=== PATIENT | male | born 1975 | race Caucasian/White ===

== ENCOUNTER 2023-03-09 22:07 | Emergency (ER) | payer MEDICAID, SELFPAY ==
--- NOTE | ~2023-03-09 | XR_ITS ---
EXAMINATION: XR wrist LT min 3V DATE: 03/09/2023 22:25 INDICATION: Left wrist pain. TECHNIQUE: 4 views of left wrist were obtained. COMPARISON: None. FINDINGS: Scapholunate dissociation is noted. There is rotatory subluxation of scaphoid. There is sev ere osteoarthritis of lunate-capitate joint. There is mild osteoarthritis of first carpometacarpal claudia int and triscaphe joint. There is moderate osteoarthritis of lunate-hamate joint. IMPRESSION: 1. Scapholunate dissociation. 2. 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 Reviewed, dictated and finalized at location E. ERCIAL SEWING INSTRUCTOR IMPRESSION: 1. Scapholunate dissociation. 2. 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
[2023-03-09 22:07] VITALS: BP 194/110; PULSE 98; RESP 18; TEMP 37.1; O2SAT 100
--- NOTE | 2023-03-09 22:13 | ED.UPPEXIN ---
HPI - Extremity Injury (Upper) General Chief Complaint: Extremity Injury, Upper Stated Complaint: injured wrist/ hand Time Seen by Provider: 03/09/23 22:12 Source: patient Mode of arrival: ambulatory Limitations: no limitations History of Present Illness HPI narrative: 48-year-old male with a history of hypertension presents to the ER with -- acute onset left wrist pain with decreased range of motion. No recent trauma. He slept in his car and when he woke he noted the pain / stiffness and decreased range of motion. No prior pain in that wrist. patient is left handed no history of recent diarrhea/urethritis. complaint: injury to: left and wrist Onset (ago): hour(s) ( 6 hours) Other Extremity Injury: Left: wrist Handedness: left Severity: moderate Relieving factors: none Exacerbating factors: none Associated symptoms: denies other symptoms Treatments prior to arrival: cold therapy Related Data Allergies Allergy/AdvReac Type Severity Reaction Status Date / Time No Known Allergies Allergy Verified 03/09/23 22:20 Review of Systems Review of Systems: All systems reviewed & are unremarkable except as noted in HPI and below Constitutional: Constitutional: Reports as per HPI and Reports no additional constitutional complaints Eyes: Eyes: Reports as per HPI and Reports no additional eye complaints ENT: Reports system reviewed and no additional complaints, except as documented and Reports as per HPI Cardiovascular: Cardiovascular: Reports as per HPI and Reports no additional cardiovascular complaints Respiratory: Respiratory: Reports as per HPI and Reports no additional respiratory complaints Gastrointestinal: Gastrointestinal: Reports as per HPI and Reports no additional gastrointestinal complaints Genitourinary: Genitourinary: Reports no additional male genitourinary complaints Musculoskeletal: Musculoskeletal: Reports no additional musculoskeletal complaints and Reports as per HPI Comments: left wrist pain /swe Integumentary/Breasts: Skin/Breast: Reports system reviewed and no additional complaints, except as docu and Reports as per HPI Neurologic: Reports system reviewed and no additional complaints, except as documented and Reports as per HPI Psychiatric: Psychiatric: Reports no additional psychiatric complaints and Reports as per HPI Endocrine: Endocrine: Reports no additional endocrine complaints and Reports as per HPI Hematologic/Lymphatic: Hematologic/Lymphatic: Reports no additional hematologic/lymphatic complaints and Reports as per HPI Allergic/Immunologic: Allergic/Immunologic: Reports no additional allergic/immunologic complaints and Reports as per HPI PMFSH Past Medical History Medical History Hypertension Exam Narrative: patient is hypertensive with a blood pressure of 194/110. Const: General: healthy appearing and no acute distress Orientation/consciousness: patient oriented x3 Limitations: no limitations HENMT: Head: normal to inspection Ears: external ears normal Face/Nose/Sinus: Normal external nose present Face and sinus: normal facial exam Mouth: Yes Normal oral and palatal mucosa present Throat: posterior oropharynx normal Eyes: Conjunctivae: conjunctivae normal Pupils: Equal, round and reactive pupils present EOM: EOMs intact bilaterally Direct Ophthalmoscopy: no photophobia Neck: Neck: normal visual inspection and no lymphadenopathy Chest: Chest palpation & inspection: normal inspection of the chest Resp: Effort & Inspection: normal respiratory effort Auscultation: clear to auscultation bilaterally Cardio: Rate: regular rate Rhythm: regular rhythm GI: GI Palp: Yes Soft to palpation Other: No tenderness/rigidity / rebound. : General: Yes no CVA tenderness Back/Spine/Pelvis: Back: no CVA tenderness Skin: General skin exam: normal color Rashes: no rashes Wounds: no wounds Neuro:
== END 2023-03-09 23:34 | disposition home or self-care (01) ==
PROVIDERS: Emergency Provider Internal Medicine Critical Care Medicine
DX: M25.332 Other instability, left wrist (principal); I10 Essential (primary) hypertension
CPT/HCPCS: 73110; 99283

== ENCOUNTER 2023-03-23 09:08 | Outpatient (CLI) | payer MEDICAID, SELFPAY ==
[2023-03-23 09:34] LABS: Basophils Absolute Auto 0.07 K/mm3 (0.00-0.10); Basophils Percent Auto 0.6 % (0.0-1.0); Eosinophils Absolute Auto 0.11 K/mm3 (0.02-0.50); Hematocrit 47.8 % (40.0-54.0); Hemoglobin 15.4 g/dL (14.0-18.0); Immature Granulocyte Absolute 0.04 K/mm3 (0.00-0.00); Immature Granulocyte Percent A 0.4 % (0.0-0.0); Lymphocytes Absolute Auto 2.55 K/mm3 (1.10-4.50); Mean Corpuscular HGB Conc 32.2 g/dL (32.0-36.0); Mean Corpuscular Hemoglobin 26.8 pg (27.0-31.0); Mean Corpuscular Volume 83.1 fL (78.0-102.0); Mean Platelet Volume 11.7 fl (8.7-11.0); Monocytes Absolute Auto 0.76 K/mm3 (0.10-0.90); Monocytes Percent Auto 6.9 % (2.0-11.0); Neutrophils Absolute Auto 7.6 K/mm3 (1.7-7.2); Neutrophils Percent Auto 68.1 % (50.0-70.0); Platelet Count Result 236 K/mm3 (150-420); Red Blood Count 5.75 M/mm3 (4.70-6.10); Red Cell Distribution Width 14.6 % (11.6-14.4); White Blood Count 11.1 K/mm3 (4.8-10.8)
[2023-03-23 10:16] LABS: Alanine Aminotransferase 38 U/L (16-63); Albumin Level 3.6 g/dL (3.4-5.0); Alkaline Phosphatase 115 U/L (46-116); Anion Gap 13 mmol/L (8-16); Aspartate Amino Transferase 27 U/L (15-37); Bilirubin,Total 0.4 mg/dL (0.00-1.00); Blood Urea Nitrogen 24 mg/dL (7-18); Calcium 9.1 mg/dL (8.5-10.1); Carbon Dioxide 24 mmol/L (21-32); Chloride 101 mmol/L (98-108); Cholesterol 185 mg/dL (0-200); Estimated Glomerular Filt Rate > 60; Glucose 110 mg/dL (70-99); HDL Direct 48 mg/dL (40-60); LDL Cholesterol Calculated 116 mg/dL (<130); Osmolality Calculated 291 mOsm/kg (285-295); Potassium 4.4 mmol/L (3.5-5.1); Sodium 138 mmol/L (136-145); Total Protein 7.3 g/dL (6.4-8.2); Triglycerides 103 mg/dL (0-150)
== END 2023-03-23 09:09 | disposition home or self-care (01) ==
LOC: CHSLAB 09:10
PROVIDERS: PCP Family Medicine; Visit Provider Family Medicine
DX: I10 Essential (primary) hypertension (principal)
CPT/HCPCS: 36415; 80053; 80061; 85025

== ENCOUNTER 2023-04-11 11:47 | Outpatient (RCR) | payer MEDICAID, SELFPAY ==
--- NOTE | 2023-04-15 11:26 | BUOTOPEVAL ---
Assessment and note entered by Belinda Gupta, OT Evaluation Information Assessment Status Evaluation Diagnosis L wrist inflamation Onset 03/09/2023 Subjective Information The patient reports minimal pain as soreness in L wrist at the time of evaluation. The patient reports he was casted for 5 weeks with his thumb immobilized and it got removed 04/09/23. The patient has been wearing wrist brace with thumb free for 1 week at all times. He reports tingling in ring and small finger and has a nerve conduction test soon to determine nerve involvement. The patient reports when he takes a shower he has pain the worst and when moving his wrist at all. 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 He now states limited fruit raiser in UE. Reported Pain Level Pain Score 0: Self Report Pain Score 0: Self Report Assessment OT Clinical Summary The patient is a 48 year old male who was referred to outpatient OT due to L wrist pain resulting in pain, limited ROM and weakness. The patient's PMH includes but is not limited to diabetes. The patient previously demonstrated WNL wrist ROM, WNL strength/fruit raiser strength and no difficulties with fine motor coordination. The patient now demonstrates moderately impaired fine motor coordination, wrist strength, wrist AROM, and fruit raiser strength that affect his ability to open jars, zip zippers and button his shirts. The patient requires skilled OT to address functional deficits and return to PLOF in order to perform ADLs and IADLs. . Plan of Care Interventions Therapeutic Exercise,Manual Therapy,Neuro Re- education,Therapeutic Activities,Hot Pack/Cold Pack,Electrical Stimulation,Self-Care/Home Management,Prosthetic Training,Check Out for Orthotic/Pr,Ultrasound OT Services Indicated Yes Treatment Frequency and 3x/week for 12 visits. Duration These treatments will address the objective and functional deficits as defined above. The patient will be advanced safely and appropriately in order for the patient to progress towards his/her prior level of function. Additional exercises will be introduced and as well as a comprehensive home exercise program upon discharge, if needed, ?to ensure carryover of functional gains achieved in the clinic. This treatment plan has been reviewed and agreement upon by the patient.
--- NOTE | 2023-05-06 15:06 | OTOPDC ---
Assessment and note entered by Belinda Gupta, OT Evaluation Information Assessment Status Discharge Subjective Information The patient reports his wrist feels much better. He stated that he is able to perform all ADLs independently and with no issues in L wrist. The patient reports he does not have pain only at times when he moves it a certain way. He stated that he has made really good improvement since the start of OT. Reported Pain Level Pain Score 0: Self Report Pain Score 0: Self Report Assessment OT Clinical Summary The patient demonstrates significant progress in pain symptoms, crew leader strength, pinch strength, fine motor coordination and AROM of L wrist and hand leading to increased independence with opening containers and performing ADLs without difficulty. The patient demonstrates significant progress in function of L UE and scored 43% on QuickDASH at discharge. The patient was educated on HEP and demonstrates 100% knowledge and return demonstration. The patient is discharged at this time for L wrist, to determine further therapy treatment following MD appointment. Plan of Care OT Services Indicated No
== END 2023-05-06 16:20 | disposition home or self-care (01) ==
LOC: CHSOT 11:47
PROVIDERS: Visit Provider Plastic Surgery
DX: M25.532 Pain in left wrist (principal)
CPT/HCPCS: 97014; 97110; 97140; 97165; 97530; G0283

== ENCOUNTER 2023-05-03 09:36 | Outpatient (CLI) | payer MEDICAID, SELFPAY ==
--- NOTE | 2023-05-03 11:00 | NEURO_ITS ---
Impression: # Complains of left hand numbness. # Left ulnar neuropathy across the elbow. # Mild left Carpal Tunnel Syndrome. # Needle/EMG exam neurogenic in left 1st DI and ADM. Nerve Conduction Studies Anti Sensory Summary Table Stim Site NR Peak (ms) P-T Amp (?V) Site1 Site2 Delta-P (ms) Dist (cm) Timmy (m/s) Left Median Anti Sensory (2-3nd Digit) Wrist 4.1 24.2 Wrist 2-3nd Digit 4.1 14.0 34 Wrist 5.2 23.4 Wrist 2-3nd Digit 4.1 14.0 34 Left Radial Anti Sensory (Base 1st Digit) Wrist 2.3 15.1 Wrist Base 1st Digit 2.3 0.0 Left Ulnar Anti Sensory (5th Digit) Wrist 3.7 11.7 Wrist 5th Digit 3.7 14.0 38 Motor Summary Table Stim Site NR Onset (ms) O-P Amp (mV) Site1 Site2 Delta-0 (ms) Dist (cm) Timmy (m/s) Left Median Motor (Abd Poll Brev) Wrist 4.4 1.7 Elbow Wrist 6.4 34.0 53 Elbow 10.8 1.3 Left Ulnar Motor (Abd Dig Minimi) Wrist 2.9 4.8 A Elbow Wrist 8.0 33.0 41 A Elbow 10.9 3.6 B Elbow Wrist 6.2 22.0 35 B Elbow 9.1 2.2 F Wave Studies NR F-Lat (ms) L-R F-Lat (ms) Left Median (Mrkrs) (Abd Poll Brev) 34.63 Left Ulnar (Mrkrs) (Abd Dig Min) 29.38 EMG Side Muscle Nerve Root Ins Act Fibs Amp Dur Recrt Comment Left 1stDorInt Ulnar C8-T1 Nml Nml Incr >12ms +2 Left Ext Indicis Radial (Post Int) C7-8 Nml Nml Nml Nml Nml Left Ext Digitorum Radial (Post Int) C7-8 Nml Nml Nml Nml Nml Left BrachioRad Radial C5-6 Nml Nml Nml Nml Nml Left PronatorTeres Median C6-7 Nml Nml Nml Nml Nml Left Abd Poll Brev Median C8-T1 Nml Nml Nml Nml Nml Left ABD Dig Min Ulnar C8-T1 Nml Nml Incr >12ms +2 Left Abd Poll Long Radial (Post Int) C7-8 Nml Nml Nml Nml Nml MTDD
== END 2023-05-03 09:37 | disposition home or self-care (01) ==
PROVIDERS: Visit Provider Plastic Surgery
DX: G56.22 Lesion of ulnar nerve, left upper limb (principal); G56.02 Carpal tunnel syndrome, left upper limb
CPT/HCPCS: 95886; 95909

== ENCOUNTER 2023-06-23 07:13 | Day surgery (SDC) | payer OTHER, SELFPAY ==
[2023-06-20 10:31] VITALS: BMI 31.6
--- NOTE | 2023-06-23 07:01 | PM.HPGS ---
History of Present Illness History of Present Illness Chief complaint: Left Carpal Tunnel Syndrome and Ulnar Nerve Lesion Narrative: Patient seen and examined in pre-operative holding area. No interval change in medical history or symptoms. Patient recalls previous discussion of benefits and alternatives to procedure. Continues to desire to proceed with left endoscopic possible open carpal tunnel release and left cubital tunnel release. Reviewed procedure, post-op expectations and risks including but not limited to bleeding, infection, injury to tendon/nerve/vessel, decreased hand function, stiffness, RSD, no change or worsening of symptoms. I discussed the possible use of assistants and their participation in the case. Patient stated understanding and signed the consent form wishing to proceed. Review of Systems Review of Systems: All systems reviewed & are unremarkable except as noted in HPI and below PMFSH Past Medical History Medical History Hypertension Surgical History Surgical History Previous back surgery Family History Family History Mother Diabetes mellitus Social History Social History Smoking status: Current some day smoker Tobacco type: cigarettes Alcohol intake: former Substance use: unknown Substance use type: does not use Living arrangements: alone Spiritual care concerns: No Meds Home Medications and Allergies Home Medications Medication Instructions Recorded Confirmed Type lisinopril 10 1 tablet PO DAILY #30 tabs 03/09/23 06/23/23 Rx mg-hydrochlorothiazide 12.5 mg tablet tramadol 50 mg tablet 50 mg PO Q6H PRN pain #12 tabs 06/23/23 Rx Allergies Allergy/AdvReac Type Severity Reaction Status Date / Time No Known Allergies Allergy Verified 06/23/23 07:42 Exam Narrative: unchnaged Assessment and Plan Assessment and plan (1) Left carpal tunnel syndrome: Code(s): G56.02 - Carpal tunnel syndrome, left upper limb Status: Acute Assessment and Plan: cont as above (2) Entrapment of left ulnar nerve at elbow: Code(s): G56.22 - Lesion of ulnar nerve, left upper limb Status: Acute
--- NOTE | 2023-06-23 07:02 | W.PM.PROC2 ---
Procedure Note - Detailed Date of Procedure 06/23/23 Pre-op Diagnosis Left Carpal and cubital Tunnel Syndrome Post-op Diagnosis Same Procedure Performed left ectr and CuTR Surgeon Darlin Marie MD Pin Drafting Machine Tender Deysi Perez PA-C Anesthesia MAC Description of Procedure INFORMED CONSENT: The patient was seen and examined and marked in the pre-op area.? The patient signed the consent form. PROCEDURE IN DETAIL:The patient taken back to OR on the stretcher in supine position. Time out performed with anesthesia, surgeon and staff agreeing on patient's name site and surgery to be performed SCDs were placed on the lower extremities and inflated. A tourniquet was placed on {left} upper extremity and antibiotics given IV After anesthesia administered sedation I injected {10}cc 1%lido with epi and 0.5% marcaine plain at the operative sites The?{left upper extremity}?was prepped and draped in sterile fashion the??{left upper extremity} was? exsanguinated with Esmarch bandage and tourniquet inflated to 250mmHg I made a transverse incision in the {left} volar distal wrist crease through skin and dermis with 15 blade scalpel.? Littler scissors spread down to antebrachial fascia. A small incision was made in antebrachial fascia allowing access to Carpal tunnel. I proceeded with sequential dilation staying in line with the ring finger and hugging the hook of the hamate.? I then used the synovial elevator to free any adhesions from the underside of the transverse carpal ligament. Next I was able to insert the Microaire endoscopic carpal tunnel device with direct visualization of the transverse fibers on the monitor and proceeded with complete segmental retrograde release of the ligament in its entirety.? I irrigated with normal saline and closed with 4-0 monocryl for dermis and subcuticular closure. Next, I next proceeded with making a longitudinal incision between two heads for flexor carpi ulnaris at end of {left} cubital tunnel with 15 blade scalpel.? Littler scissors were used to spread down to FCU fascia.? An incision was made in FCU fascia and ulnar nerve identified exiting cubital tunnel.? I proceeded with complete retrograde release of the cubital tunnel including 7cm proximal for the intermuscular septum.? The nerve appeared healthy with visible vaso nervorum.? There was no subluxation on full elbow range of motion. ? I irrigated with normal saline and closure with 4-0 monocryl for dermis and subcuticular. A dressing of Dermabond, 4x4, marcelo, and a volar wrist and posterior elbow splint was applied for patient safety, security, and comfort and secured with an jose c bandage after the tourniquet was let down noting the hand was warm and well perfused. The patient was then awaken from anesthesia and transferred to the recovery room in stable condition.? Complications - none EBL- 0cc Disposition - home in stable conditions Deysi Perez PA-C was essential for positioning, retraction, closure and dressing placement G Billing Surgery - Charge Forward: Surgery Billing ([id number], for deysi)
[2023-06-23 07:46] VITALS: BP 132/86; PULSE 93; RESP 14; TEMP 36.7; O2SAT 100; BMI 30.5
[2023-06-23] MEDS: LACTATED RINGERS 1,000 ML 30 ML IV CONT (07:58)
--- NOTE | 2023-06-23 08:01 | P.PNAN_ITS ---
Anes - Initial Pre Proc Eval Procedure: Operation Date: 06/23/23 09:00 Proposed Procedures p Left Endoscopic Carpal Tunnel Release, Possible Open Carpal Tunnel Release - Darlin Marie MD s Left Cubital Tunnel Release - Darlin Marie MD Date/Time: 06/23/23 08:01 Surgeon: Darlin Marie MD Pre Op Diagnosis: Left Carpal Tunnel Syndrome and Ulnar Nerve Lesion Patient Data Age: 48 Gender: M Height: 1.78 m Weight: 96.6 kg Last Vital Signs Temp 36.7 C 06/23/23 07:46 Pulse 93 06/23/23 07:46 Resp 14 06/23/23 07:46 BP 132/86 06/23/23 07:46 Pulse Ox 100 06/23/23 07:46 O2 Del Method Room Air 06/23/23 07:46 Allergies Allergy/AdvReac Type Severity Reaction Status Date / Time No Known Allergies Allergy Verified 06/23/23 07:42 Home Medications Medication Instructions Recorded Confirmed Type lisinopril 10 1 tablet PO DAILY #30 tabs 03/09/23 06/23/23 Rx mg-hydrochlorothiazide 12.5 mg tablet tramadol 50 mg tablet 50 mg PO Q6H PRN pain #12 tabs 06/23/23 Rx Patient hx anesthesia problems: none Family hx anesthesia problems: none Results Review: All pre-operative results and documents have been reviewed as part of the pre- operative evaluation. [facility] Past Medical History Medical History Hypertension Surgical History Surgical History Previous back surgery Family History Family History Mother Diabetes mellitus Social History Social History Smoking status: Current some day smoker Tobacco type: cigarettes Alcohol intake: former Substance use: unknown Substance use type: does not use Living arrangements: alone Spiritual care concerns: No Anes - Eval Final PreProcedure Day of Procedure 06/23/23 08:01 Patient weight: obese Heart: regular rate and rhythm Lungs: clear to auscultation Airway: Mallampati scale class II Neurological: alert and oriented Last oral intake: >/= 8 hours ASA classification: II Emergent: no Anesthetic plan: proceed Anesthesia type and monitoring: general GIVS and standard monitoring Results Review: All pre-operative results and documents have been reviewed as part of the pre- operative evaluation. Informed Consent: The patient's anesthetic plan and its attendant risks and benefits were discussed with the patient/family/POA. Questions were solicited and answers provided to the satisfaction of the patient/family/POA.
[2023-06-23] MEDS: ceFAZolin SODIUM 2 GM/20 ML SW SYRINGE IV PUSH (08:39)
[2023-06-23] MEDS: LIDOCAINE HCL 1% LOCAL INJ 20 ML VIAL 5 ML INFILTRATE (08:42)
[2023-06-23] MEDS: BUPivacaine HCL 0.5% 10 ML AMP 5 ML INFILTRATE (08:42)
[2023-06-23 09:11] VITALS: BP 104/72; PULSE 84; RESP 12; O2SAT 100
[2023-06-23 09:30] VITALS: BP 109/74; PULSE 76; RESP 16; O2SAT 97
--- NOTE | 2023-06-23 09:45 | WPDANESPN ---
Anes - Prog Note Post-Op Date/Time: 06/23/23 09:45 Cardiovascular status: normal Respiratory status: normal Airway patency: baseline Mental status: baseline Post-Op hydration status: normal Vital Signs: Last Vital Signs Temp 36.7 C 06/23/23 07:46 Pulse 76 06/23/23 09:30 Resp 16 06/23/23 09:30 BP 109/74 06/23/23 09:30 Pulse Ox 97 06/23/23 09:30 O2 Del Method Room Air 06/23/23 09:30 Pain Score (VAS): 0/10 Patient Feedback: Patient satisfied with anesthetic care.
[2023-06-23 10:00] VITALS: BP 126/92; PULSE 72; RESP 18; O2SAT 100
== END 2023-06-23 10:18 | disposition home or self-care (01) ==
PROVIDERS: PCP Family Medicine; Visit Provider Plastic Surgery
PROC: 01N54ZZ Release Median Nerve, Percutaneous Endoscopic Approach (ICD-10-PCS; CPT 29848; principal; 2023-06-23 09:00)
PROC: (CPT 64718; 2023-06-23 09:00)
DX: G56.02 Carpal tunnel syndrome, left upper limb (principal); G56.22 Lesion of ulnar nerve, left upper limb
CPT/HCPCS: 29848; 64718